=== PATIENT | female | born 1950 | race Caucasian/White ===

== ENCOUNTER → 2017-04-24 08:22 | Outpatient (CLI) | payer MEDICARE, BC ==
--- NOTE | ~2017-04-24 | HEMODYNAMI ---
PATIENT:YOUSUF BOYER MEDICAL RECORD: [id number] : 46 LOCATION:[facility] ADMISSION DATE: 04/24/17 Generatedon:04/24/201714:18 Patient name: YOUSUF BOYER Patient #: [id number] SSN: : 1950 Date of study: 04/24/2017 Page: Of Hemodynamic Procedure Report Patient Data Patient Demographics Procedure consent was obtained First Name: YOUSUF Gender: Female Last Name: MERLIN : 1950 [facility] Initial: MARK Age: 66 year(s) Patient #: [id number] Race: Unknown Additional ID: [id number] Contact details [address]: [address] [place] [address] State: [place] City: [place] Zip code: [address] Admission Admission Data Admission Date: 04/24/2017 Admission Time: 8:22 Procedure Procedure Types Cath Procedure Diagnostic Procedure LHC LHC w/Coronaries Miscellaneous Procedures Moderate Sedation up to 15 minutes Procedure Description Procedure Date Procedure Date: 04/24/2017 Procedure Start Time: 14:06 Procedure End Time: 14:17 Procedure Staff Name Function Abel Rodriguez MD Performing Physician Jordy Foster RN Nurse Raymond Beal RT Monitor Hayde Thao RT Scrub Procedure Data Cath Procedure Fluoroscopy Diagnostic fluoroscopy Total fluoroscopy Time: 0.8 time: 0.8 min min Diagnostic fluoroscopy Total fluoroscopy dose: 269 dose: 269 mGy mGy Contrast Material Contrast Material Type Amount (ml) Isovue 300 47 Entry Location Entry Primary Successful Side Size Upsize Upsize Entry Closure Jeffries ccessful Closure Location (Fr) 1 (Fr) 2 (Fr) Remarks Device Remarks Radial Right 6 Fr Mechanical artery Short Compression Estimated blood loss: 10 ml Diagnostic catheters Device Type Used For End Catheter Placement Diagnostic Terumo 5Fr Procedure Absecon 110cm catheter Procedure Complications No complications Procedure Medications Medication Administration Route Dosage Oxygen NC 2 l/min Heparin Flush Bag added to field 2 bags (1000units/500ml NS) 0.9% NaCl I.V. 100 ml/hr Radial Cocktail added to field 1 syringe (Verapomil 2mg/Nitro 400mcg/Heparin 1500units) Fentanyl I.V. 50 mcg Versed I.V. 1 mg Radial Cocktail I.A. 1 syringe (Verapomil 2mg/Nitro 400mcg/Heparin 1500units) Fentanyl I.V. 50 mcg Versed I.V. 1 mg Hemodynamics Rest Heart Rate: 54 (bpm) Pressure Samples Time Site Value (mmHg) Purpose Heart Use Rate(bpm) 14:09 AO 135/69(99) Snapshot 54 Snapshots Pre Cath Intra NCS Post Cath Vital Signs Time Heart Resp SPO2 etCO2 NIBP (mmHg) Rhythm Pain Sedation Rate (ipm) (%) (mmHg) Status Level (bpm) 13:59:31 112 20 98 0 162/96(125) NSR 0 (11) 10(A) , No pain 14:04:12 106 18 98 0 151/82(118) NSR 0 (11) 10(A) , No pain 14:08:46 104 20 98 0 127/77(100) NSR 0 (11) 10(A) , No pain 14:13:20 106 18 97 0 142/87(107) NSR 0 (11) 10(A) , No pain Medications Time Medication Route Dose Verified Delivered Reason Notes Effectiveness by by 13:56:47 Oxygen NC 2 l/min Abel Spence Per Jennifer Foster RN physician 13:57:01 Heparin Flush added 2 bags Abel Spence used for Bag to Jennifer Foster RN procedure (1000units/500ml field NS) 13:57:12 0.9% NaCl I.V. 100 Abel Spence Per ml/hr Jennifer Foster RN physician 13:57:43 Radial Cocktail added 1 Abel Spence used for (Verapomil to syringe Jennifer Foster RN procedure 2mg/Nitro field 400mcg/Heparin 1500units) 14:04:19 Fentanyl I.V. 50 mcg Abel Spence for sedation Jennifer Foster RN 14:04:28 Versed I.V. 1 mg Abel Spence for sedation Jennifer Foster RN 14:08:06 Radial Cocktail I.A. 1 Abel Roman for (Verapomil syringe Jennifer Rodriguez MD vasodilation 2mg/Nitro 400mcg/Heparin 1500units) 14:08:13 Fentanyl I.V. 50 mcg Abel Spence for sedation Jennifer Foster RN 14:08:20 Versed I.V. 1 mg Abel Spence for sedation Jennifer Foster RN Procedure Log Time Note 13:30:27 Raymond Beal RT(R) sent for patient. Start room use. 13:39:29 Time tracking: Regular hours 13:39:33 Plan of Care:Hemodynamics will remain stable., Cardiac rhythm will remain stable., Comfort level will be maintained., Respiratory function will remain adequate., Patient/ family verbilizes understanding of procedure., Procedure tolerated without complication., Recovers from procedure without complications.. 13:48:30 Patient received from Pre/Post Procedure Room to [facility] 1 Alert and oriented. Tansferred to table in Supine position. 13:48:32 Warm blankets applied, and mihaela hugger turned on for patient comfort. 13:48:33 Correct patient and procedure confirmed by team. 13:48:35 Signed procedure consent form obtained from patient. 13:48:36 ECG and BP/O2 sat monitors applied to patient. 13:56:47 Oxygen 2 l/min NC was administered by Jordy Foster RN; Per physician; 13:57:01 Heparin Flush Bag (1000units/500ml NS) 2 bags added to field was administered by Jordy Foster RN; used for procedure; 13:57:12 0.9% NaCl 100 ml/hr I.V. was administered by Jordy Foster RN; Per physician; 13:57:43 Radial Cocktail (Verapomil 2mg/Nitro 400mcg/Heparin 1500units) 1 syringe added to field was administered by Jordy Foster RN; used for procedure; 13:58:39 Vital chart was started 14:01:10 Rhythm: sinus tachycardia 14:01:13 Full Disclosure recording started 14:01:49 H&P Date Dictated: 03/31/2017 Within 30 days and on chart., H&P Addendum completed by physician on day of procedure. (MUST COMPLETE FOR ALL OUTPATIENTS). 14:01:50 Pre-procedure instructions explained to patient. 14:01:50 Pre-op teaching completed and patient verbalized understanding. 14:01:53 Family in waiting room. 14:01:55 Patient NPO since Midnight. 14:01:56 Is the patient allergic to Iodine/contrast media? No. 14:01:57 Is patient on blood thinner?Yes 14:02:05 ACC The patient was administered the following blood thiners within the last 24 hours: ACCPlavix 14:02:38 Patient diabetic? No. 14:02:41 Previous problem with sedation/anesthesia? No ? 14:02:43 Snore? Yes 14:02:45 Sleep apnea? No 14:02:46 Deviated septum? No 14:02:48 Opens mouth fully? Yes 14:02:49 Sticks out tongue? Yes 14:03:18 Airway obstruction? Yes COPD 14:03:22 Dentures? No ? 14:03:24 Pre procedure: right dorsailis pedis pulse 1+ Palpable, but thready & weak; easily obliterated 14:03:27 Modified Antione's test Ulnar < 7 seconds 14:03:30 Patient pain scale 0/10 ?. 14:03:36 IV patent on arrival in left forearm with 0.9% NaCl at [facility]. 14:03:38 Lab results completed and on chart. 14:03:40 Right Radial & Right Groin area was prepped with chlora-prep and draped in sterile fashion 14:03:41 Alarms reviewed by R. N. 14:03:42 Sharps counted by scrub and verified by R.N. 14:03:43 --------ALL STOP TIME OUT------ 14:03:44 Final Timeout: patient, procedure, and site verified with staff and physician. All members of the team are in agreement. 14:03:45 Right Radial & Right Groin site verified by team. 14:03:47 Physical assessment completed. ASA score P 2 - A patient with mild systemic disease as per bAel Rodriguez MD. 14:03:50 Sedation plan: IV Moderate Sedation Versed, Fentanyl 14:04:19 Fentanyl 50 mcg I.V. was administered by Jordy Foster RN; for sedation; 14:04:28 Versed 1 mg I.V. was administered by Jordy Foster RN; for sedation; 14:06:46 Zero performed for pressure channel P1 14:06:53 Procedure started. 14:06:58 Local anesthetic to right radial artery with Lidocaine 2% by Abel Rodriguez MD.INITIAL ACCESS ONLY 14:07:01 Zero performed for pressure channel P1 14:07:04 Zero performed for pressure channel P1 14:07:23 Use device set Radial Dx 14:07:25 Tegaderm 4 x 4 opened to sterile field. 14:07:25 Acist Manifold opened to sterile field. 14:07:26 Acist Hand Control opened to sterile field. 14:07:27 Acist Syringe opened to sterile field. 14:07: Medline Cath Pack opened to sterile field. 14:07: Bag Decanter opened to sterile field. 14:07:28 Terumo 6Fr Slender Glidesheath opened to sterile field. 14:07:28 St Mode 260cm J .035 wire opened to sterile field. 14:07:29 MBrace Wrist Support opened to sterile field. 14:07:40 A 6 Fr Short sheath was inserted into the Right Radial artery 14:08:02 A Diagnostic Terumo 5Fr [place]secon 110cm catheter was advanced over the wire and used for Procedure. 14:08:06 Radial Cocktail (Verapomil 2mg/Nitro 400mcg/Heparin 1500units) 1 syringe I.A. was administered by Abel Rodriguez MD; for vasodilation; 14:08:13 Fentanyl 50 mcg I.V. was administered by Jordy Foster RN; for sedation; 14:08:20 Versed 1 mg I.V. was administered by Jordy Foster RN; for sedation; 14:08:47 LV angiography performed. 14:08:49 LV gram done using ACOSTA 14:08:58 EF : 55 % 14:08:59 LV hemodynamics recorded. 14:09:04 Injector settings: Ml/sec: 7, Volume: 15, 14:09:12 LCA angiography performed. 14:09:59 RCA angiography performed. 14:10:17 Terumo TR Band Standard opened to sterile field. 14:10:25 Catheter removed. 14:11:00 Sheath removed intact; hemostasis achieved with Mechanical Compression to the Right Radial artery. 14:11:03 Procedure ended.(Physican Out) 14:11:28 Fluoroscopy time 00.80 minutes. 14:11:32 Fluoroscopy dose: 269 mGy 14:11:32 Flurop Dose total: 269 14:11:38 Contrast amount:Isovue 300 47ml. 14:11:40 Sharps counted by scrub and verified by R.N. 14:11:43 TR band inflated with 14cc of air. 14:11:44 Insertion/operative site no bleeding no hematoma. 14:11:45 Post Procedure Pulses reassessed and unchanged 14:11:48 Post-procedure physical assessment completed. ASA score P 2 - A patient with mild systemic disease as per Abel Rodriguez MD. 14:11:50 Post procedure rhythm: unchanged. 14:11:53 Estimated blood loss: 10 ml 14:11:55 Post procedure instruction explained to patient.Patient verbalizes understanding. 14:11:56 Patient needs reinforcement of post procedure teaching. 14:12:14 Procedure and supply charges have been captured, reviewed, submitted and are correct. 14:12:18 Procedure Complication : No complications 14:17:51 Vital chart was stopped 14:17:52 See physician's report for complete and final results. 14:17:54 Report given to Pre/Post Procedure Room. 14:17:56 Patient transfered to Pre/Post Procedure Room with Stretcher. 14:17:58 Procedure ended. 14:17:58 Full Disclosure recording stopped 14:18:02 End room use (Document Last) Device Usage Item Name Manufacture Quantity Catalog Hospital Part Current Minimal Lot# / Number Charge Number Stock Stock Serial# Code Tegaderm 4 1 [id number] [id number] [id number] 5 x 4 Acist Acist 1 79867 093897 786804 958272 5 Manifold [employer] Acist Hand Acist 1 80677 496000 994103 491739 5 Control [employer] Inc Acist Acist 1 61319 029287 212685 846781 20 Syringe Medical [employer] Inc Medline Cardinal 1 [id number] 798512 58674 729058 5 Cath Pack Health Bag Microtek 1 2001S 318172 80441 570822 5 [employer] Terumo 6Fr Terumo 1 [id number] 736292 624415 413569 [address] St Mode 1 064457 602731 251565 891450 30 260cm J .035 wire MBrace Advanced 1 140-0250-00 561891 72316 742047 5 Wrist Vascular Support Dynamics Diagnostic Terumo 1 31-3794 045346 568112 582810 5 Terumo 5Fr [place]se[place] 110cm catheter Terumo TR Terumo 1 [id number] 582608 307218 808960 40 Band Standard Signature Audit Hadley Stage Time Signature Unsigned Intra-Procedure 04/24/2017 Raymond Beal 2:18:27 PM RT(R) Signatures Monitor : Raymond Beal RT Signature : Date : Time : [id number] [place] [address]
[~2017-04-24 08:22] MED LIST: ADVAIR 250/501 DISK INH; DALIRESP500 MCG PO; ESTRACE 0.5 MG0.5 MG PO; IPRAT-ALBUT 0.5-3 ML UPD; PLAVIX75 MG PO; PROAIR HFA8.5 GM INH; PROLASTIN C; SOLU-MEDRO40 MG/1 M1 PO; SPIRIVA18 MCG INH; XANAX XR 1 MG TA1 MG PO
[2017-04-24 09:29] VITALS: BP 163/76; BMI 25.7
[2017-04-24 09:37] LABS: BASOPHILS 0 % (0-2); EOSINOPHILS 0 % (0-7); HEMATOCRIT 38.6 % (36.0-48.0); HEMOGLOBIN 13.2 g/dL (12-16); IMMATURE GRANULOCYTES 0.7 % (0-5); LYMPHOCYTES 15.2 % (15-50); MCH 28.6 pg (26.0-34.0); MCHC 34.2 g/dL (31.0-37.0); MCV 83.7 fL (80.0-100.0); MEAN PLATELET VOLUME 10.2 fL (7.4-10.4); MONOCYTES 2.5 % (2-11); NEUTROPHILS 81.6 % (40-80); PLATELET COUNT 230 10x3/uL (130-400); RBC 4.61 10x6/uL (4.00-5.40); RDW 13.2 % (11.5-14.5)
[2017-04-24 09:56] LABS: CALC OSMOLALITY 280 mosm/kg (275-300); CALCIUM 10.5 mg/dL (8.5-10.1); CARBON DIOXIDE 24.9 mmol/L (21.0-32.0); CHLORIDE - SERUM 105 mmol/L (98-107); CREATININE - SERUM 0.7 mg/dL (0.6-1.3); GLUCOSE 148 mg/dL (74-106); SODIUM 140 mmol/L (136-145); UREA NITROGEN 11 mg/dL (7-18); eGFR NON AFRICAN AMERICAN 88 mL/min (90-120)
--- NOTE | 2017-04-24 14:42 | NUR ---
1430 RECIVED TO ROOM VIA STRETCHER FROM [facility]ING FLOOR MANAGER WITH REPORT OF A CLEAN CATH. TR BAND TO R/WRIST CDI NO BLEEDING NO HEMATOMA NOTED. INSTRUCTED PATIENT TO KEEP RUE STRAIGHT NO BENDING OR FLEXING OF WRIST
--- NOTE | 2017-04-24 15:33 | NUR ---
4 CC AIR REMOVED FROM TR BAND WITH NO BLEEDING NO HEMATOMA NOTED
--- NOTE | 2017-04-24 15:51 | NUR ---
3CC OF AIR REMOVED FROM TR BAND, NO BLEEDING NOTED
--- NOTE | 2017-04-24 16:05 | NUR ---
3CC OF AIR REMOVED FROM TR BAND, NO BLEEDING NTOED.
--- NOTE | 2017-04-24 16:15 | NUR ---
LEFT PIV D/C'D WITH CATHETER INTACT, BAND AID TO SITE. DISCHARGE INSTRUCTIONS GIVEN, VERBALIZED UNDERSTANDING. UP TO BEDSIDE TO GET DRESSED.
--- NOTE | 2017-04-24 16:30 | NUR ---
TR BAND REMOVED WITH DRESSING APPLIED NO BLEEDING NO HEMATOMA NOTED. CHEST PAIN IS DENIED. VERBAL AND WRITTEN DISCHARGE GONE OVER WITH PATIENT AND . LEFT VIA WC TO [facility]ARK[facility] FOR TRANSPORT HOME NO DISTRESS NOTED
--- NOTE | 2017-05-08 16:56 | OP ---
PATIENT NAME: YOUSUF BOYER MEDICAL RECORD: [id number] :46 LOCATION:D.CAT ADMISSION DATE: SURGEON: DM GRANADOS MD DATE OF OPERATION: 04/24/2017 DATE OF SERVICE: 04/24/2017 PROCEDURES: 1. Left heart catheterization. 2. Selective coronary angiography. 3. Left ventriculogram. INDICATION: Shortness of breath, COPD, chest pain. PROCEDURE IN DETAIL: After informed consent was obtained and after a detailed explanation of risks, benefits as well as alternative therapies, the patient elected to proceed with angiogram and heart catheterization. The right radial area was prepped and draped in normal sterile fashion. The right radial artery was cannulated via modified Seldinger technique with placement of 6-Hungarian sheath. All catheters exchanged through this sheath. FINDINGS: The left ventriculogram was performed in standard 30-degree ACOSTA view, reveals good cardiac wall motion throughout all segments. Overall ejection fraction is estimated at 60%. SELECTIVE CORONARY ANGIOGRAPHY: Left main, left anterior descending, left circumflex, right coronary artery are all smooth-walled vessels with no angiographic evidence of coronary artery disease. OVERALL IMPRESSION: 1. No angiographic evidence of coronary artery disease. 2. Normal left heart pressures. 3. Normal left ventricular systolic function. Chest pain and symptomatology is secondary to her lung disease. No cardiac workup or treatment is necessary. TRANSINT:[id number] Voice Confirmation ID: [id number] DOCUMENT ID: [id number] DM GRANADOS MD at 1656 CC: [id number] DICTATION DATE: 04/24/17 1413 PIPE WASHER: 04/24/17 1707 DEP CLI 04/24/[address] [address]
== END | disposition home or self-care (01) ==
LOC: D.CATH 08:22
PROVIDERS: Internal Medicine Interventional Cardiology
DX: I20.9 Angina pectoris, unspecified (principal); R06.02 Shortness of breath; R94.30 Abnormal result of cardiovascular function study, unspecified; Z01.812 Encounter for preprocedural laboratory examination